=== PATIENT | female | born 1975 | race Caucasian/White ===

== ENCOUNTER 2016-08-03 11:44 | Emergency (ER) | payer OTHER ==
[2016-08-03 13:08] LABS: BASO % 0.2 % (0.2-1.0); EOS # 0.2 (0.0-0.5); EOS % 1.8 % (0.9-2.9); HEMOGLOBIN 15.1 gm/l (12.0-16.0); IMM NEUT% 0.3 % (0-1); LYMPH % 22.8 % (15-45); MEAN CORPUSCULAR HEMOGLOBIN 30.9 pg (27.0-31.0); MEAN CORPUSCULAR HGB CONC 34.3 g/dl (33.0-37.0); MEAN PLATELET VOLUME 9.8 fl (7.4-10.4); MONO # 0.5 (0.0-0.8); MONO % 5.8 % (4-12); NEUT % 69.1 % (43-75); PLATELET COUNT 204 K/mm3 (130-400); RED CELL DISTRIBUTION WIDTH 12.3 % (11.5-14.5)
[2016-08-03 13:29] LABS: URINE BILIRUBIN NEGATIVE (NEGATIVE); URINE BLOOD 3+ (NEGATIVE); URINE GLUCOSE (UA) NEGATIVE (NEGATIVE); URINE LEUKOCYTE ESTERASE 2+ (NEGATIVE); URINE NITRITE POSITIVE (NEGATIVE); URINE PROTEIN 1+ (NEGATIVE); URINE UROBILINOGEN NORMAL (0-1 mg/dl)
[2016-08-03 13:36] LABS: URINE APPEARANCE SL CLOUDY; URINE COLOR YELLOW
[2016-08-03 13:46] LABS: ALB/GLOB RATIO 1.3 (>1.0); ALBUMIN 4.1 gm/dL (3.5-5.7); CALCIUM 9.3 mg/dL (8.6-10.3)
[2016-08-03 14:11] LABS: URINE RBC 0-2 /hpf
[2016-08-03 14:12] LABS: URINE BACTERIA 2+ BACILLI; URINE EPITHELIAL CELLS FEW /hpf; URINE WBC 50-80 /hpf
--- NOTE | 2016-08-03 14:34 | US ---
PELVIC ULTRASOUND HISTORY: Pelvic pain. Transabdominal and transvaginal pelvic sonography performed. TRANSABDOMINAL IMAGING UTERINE DIMENSIONS: 7.5 x 4.9 x 4.0 cm. BLADDER: Incompletely filled. TRANSVAGINAL IMAGING: ENDOMETRIAL THICKNESS: 3.4 mm. An intrauterine device is in place; however, it assumes an anteriorly directed course out of the endometrium, limbs apparently protruding into myometrium. FOCAL UTERINE LESIONS: None. RIGHT OVARY: 1.6 x 1.5 x 1.1 cm for a volume of 1.4 cc. LEFT OVARY: 1.9 x 1.7 x 1.3 cm for volume of 2.1 cc. OVARIAN BLOOD FLOW: Documented on the right with Doppler interrogation. Limited evaluation on the left due to bowel gas artifact.. DOMINANT ADNEXAL LESIONS: No dominant lesion noted. FREE FLUID: None. IMPRESSION: No endometrial thickening, free fluid, or dominant adnexal lesion. Limited assessment of left ovarian blood flow. Anomalous position of intrauterine device, as above. Findings discussed with Dr. Dc of the Emergency Medicine clinical service on 08/03/2016 at 1430 hours.
[2016-08-03] MEDS ORDERED: CEFTRIAXONE 1 GRAM DUPLEX 50 ML IV ONE (14:54)
[2016-08-04 14:13] LABS: CHLAMYDIA BD Negative (Negative); N.GONORRHOEAE BD Negative (Negative); SOURCE Urine (())
== END 2016-08-03 15:26 | disposition home or self-care (01) ==
LOC: ED 11:44
DX: N39.0 Urinary tract infection, site not specified (principal); J45.909 Unspecified asthma, uncomplicated; G35 Multiple sclerosis; Z97.5 Presence of (intrauterine) contraceptive device
CPT/HCPCS: 87491; 87591; 84703; 85025; 87086; 80053; 87186; 81001; 76856; 76830; 99284; 96374; 99283; J0696